=== PATIENT | male | born 1940 | race Caucasian/White ===

== ENCOUNTER 2023-09-09 13:37 | Inpatient (IN) | payer MEDICARE, BC, SELFPAY ==
[2023-09-09] VITALS (9 sets, daily range): BP systolic 120–161; BP diastolic 65–89; BMI 20.9; BMI 21.1
[2023-09-09 09:01] LABS: % Basophils 0.4 % (0-2); % Eosinophils 1.2 % (0-6); % Immature Granulocytes 0.2 % (0-0.5); % Lymphocytes 27.8 % (20.5-51.1); % Monocytes 9.1 % (1.7-9.3); % Neutrophils 61.3 % (42.2-75.2); Absolute Eosinophils 0.1 10^3/uL (0-0.7); Absolute Lymphocytes 1.6 10^3/uL (1.2-3.4); Absolute Monocytes 0.5 10^3/uL (0.1-0.6); Absolute Neutrophils 3.4 10^3/uL (1.4-6.5); Hematocrit 40.6 % (39.0-52.0); Hemoglobin 13.7 g/dL (13.0-18.0); Mean Corp Hgb Conc. 33.7 g/dL (33.0-37.0); Mean Corpuscular Hgb 29.3 pg (27.0-31.0); Mean Corpuscular Volume 86.9 fL (80.0-94.0); Mean Platelet Volume 9.2 fL (7.4-10.4); Nucleated Red Blood Cells % 0 % (-); Platelet Count 174 10^3/uL (130-400); Red Blood Cell Count 4.67 10^6/uL (4.70-6.10); Red Cell Dist. Width 12.7 % (11.5-14.5); White Blood Cell Count 5.6 10^3/uL (4.8-10.8)
[2023-09-09 09:13] LABS: ALT (SGPT) 23 U/L (0-50); AST (SGOT) 31 U/L (17-59); Albumin 4.2 g/dl (3.5-5.0); Alkaline Phosphatase 107 U/L (38-126); Blood Urea Nitrogen 22 mg/dl (9-20); Calcium 9.2 mg/dl (8.4-10.2); Carbon Dioxide 27 mmol/L (22-30); Chloride 105 mmol/L (98-107); Estimated Creatinine Clearance 89 ml/min; Glucose 101 mg/dl (70-99); Potassium 4.3 mmol/L (3.5-5.1); Sodium 138 mmol/L (135-145); Total Protein 7.1 g/dl (6.3-8.2); eGFR > 60.00
--- NOTE | 2023-09-09 09:37 | ED.GENMED ---
History of Present Illness
<BERNICE Kurtz - Last Filed: 09/09/23 11:28>
General
Chief Complaint: Fall
Exam Limitations: dementia
Time Seen by Provider: 09/09/23 09:15
Nursing documentation reviewed up to this point in time: agreed with
Travel History
Have you had any contact with someone who has COVID-19?: No
Do you have any symptoms of coronavirus? Fever > 100 degrees, chills, cough, shortness of breath, sore throat, loss of taste or smell, muscle aches, or headache?: No
History of Present Illness
History of Present Illness:
Patient is an 83-year-old male from the [facility] at [place] sent for evaluation. Patient currently had a trip and fall and has hip pain as per EMS and penitentiary. Patient has a history of dementia with Lewy body dementia high cholesterol,
hypertension high cholesterol. Patient arrives awake alert not able to give history. He does wince with movement of left hip.
Past History
<BERNICE Kurtz - Last Filed: 09/09/23 11:28>
Past History
ED Past Medical History: Hypercholesterolemia and Other (parkinsons, Lewy Body dementia)
ED Past Surgical History: None and Orthopedic
Social History
Tobacco: Former smoker
Alcohol: None
Personal: Single
Living: with family
Review of Systems
<BERNICE Kurtz - Last Filed: 09/09/23 11:28>
Review of Systems
Allergies reviewed?: Yes
Unable to obtain full review of systems at this time due to: dementia
Other source history: penitentiary
All Other Systems: ROS reviewed and negative except as documented in HPI and ROS
Musculoskeletal: Reports other (left hip pain )
Skin: Reports no symptoms
Neurological: Reports other (no mental status change )
Psychiatric: Reports no symptoms
Phy Exam
<BERNICE Kurtz - Last Filed: 09/09/23 11:28>
General Physical Exam
General Presentation: no apparent distress
General age: appears stated age
General Skin: warm and dry
General Habitus: elderly
General Mental: alert
General Hydration: appears well hydrated
Cardiovascular Exam
Cardiovascular Exam: regular rate/rhythm and no murmur
Pulmonary Exam
Pulmonary Exam: lungs clear and no respiratory distress
Neurological Exam
Neurological Exam: alert and oriented x3
[place] Coma Scale
Eye Opening: Spontaneous
Verbal Response: Oriented
Musculoskeletal Exam
Musculoskeletal Exam: other (Strong distal pulses to bilateral lower extremity patient winces with range of motion to left hip)
Skin Exam
Skin Exam: normal color and warm/dry
Psychiatric Exam
Psychiatric Exam: normal mood/affect
Course
<BERNICE Kurtz - Last Filed: 09/09/23 11:28>
Orders/Labs/Results
Orders:
Orders
09/09/23 08:43
Electrocardiogram (*1) Urgent
Reason for Study: Vertigo / Dizzy
EKG- Treatment ONCE
09/09/23 08:48
CMP [Comprehensive Metabolic Panel] Urgent
Complete Blood Count/With Diff Urgent
09/09/23 08:56
CR Hip - LT w/wo Pel 2-3 Vw* Urgent
Comment:
Reason For Exam: pain post fall
Include a pelvis x-ray?: Yes
09/09/23 09:38
CT Cervical Spine W/o Iv Contr Urgent
Comment:
Reason For Exam: trauma
CT Head W/o Iv Contrast Urgent
Comment:
Reason For Exam: trauma
Abnormal Lab Results
09/09/23
08:48
RBC 4.67 L 10^6/uL
(4.70-6.10)
BUN 22 H mg/dl
(9-20)
Creatinine 0.6 L mg/dL
(0.7-1.3)
Glucose 101 H mg/dl
(70-99)
09/09/23 08:48
09/09/23 08:48
Vital Signs
Initial and Last Documented VS:
Initial Vital Signs
Temp Pulse Resp BP Pulse Ox
98.1 F 61 16 157/89 96
09/09/23 08:44 09/09/23 08:44 09/09/23 08:44 09/09/23 08:44 09/09/23 08:44
Last Documented Vital Signs
Temp Pulse Resp BP Pulse Ox
98.1 F 56 16 136/66 99
09/09/23 08:44 09/09/23 10:00 09/09/23 08:52 09/09/23 10:00 09/09/23 10:00
Project Coordinator consulted with Physician
Project Coordinator consulted with physician?: Yes
Name of Physician Consulted: valeriy
<Chuckie Cruz, DO - Last Filed: 09/09/23 12:01>
Orders/Labs/Results
Orders:
Orders
09/09/23 08:43
Electrocardiogram (*1) Urgent
Reason for Study: Vertigo / Dizzy
EKG- Treatment ONCE
09/09/23 08:48
CMP [Comprehensive Metabolic Panel] Urgent
Complete Blood Count/With Diff Urgent
09/09/23 08:56
CR Hip - LT w/wo Pel 2-3 Vw* Urgent
Comment:
Reason For Exam: pain post fall
Include a pelvis x-ray?: Yes
09/09/23 09:38
CT Cervical Spine W/o Iv Contr Urgent
Comment:
Reason For Exam: trauma
CT Head W/o Iv Contrast Urgent
Comment:
Reason For Exam: trauma
Abnormal Lab Results
09/09/23
08:48
RBC 4.67 L 10^6/uL
(4.70-6.10)
BUN 22 H mg/dl
(9-20)
Creatinine 0.6 L mg/dL
(0.7-1.3)
Glucose 101 H mg/dl
(70-99)
09/09/23 08:48
09/09/23 08:48
Vital Signs
Initial and Last Documented VS:
Initial Vital Signs
Temp Pulse Resp BP Pulse Ox
98.1 F 61 16 157/89 96
09/09/23 08:44 09/09/23 08:44 09/09/23 08:44 09/09/23 08:44 09/09/23 08:44
Last Documented Vital Signs
Temp Pulse Resp BP Pulse Ox
98.1 F 56 16 136/66 99
09/09/23 08:44 09/09/23 10:00 09/09/23 08:52 09/09/23 10:00 09/09/23 10:00
<BERNICE Kurtz - Last Filed: 09/09/23 11:28>
MDM/Problems Addressed
Differential Diagnosis Includes:
Not limited to hip contusion versus fracture or dislocation
MDM/Problems Addressed:
I spoke with NOREEN daughter, Coco Arrington [phone]. I did make her aware that patient has a left hip fracture what appears to be a femoral neck fracture. It was unclear if patient hit his head. CT head negative ct cervical spine neg .
Patient has an obvious left femoral neck fracture on x-ray as documented. Case reviewed with orthopedics as well as hospitalist patient is not on blood thinners patient stable.
Chronic conditions affecting care:
Lewy body dementia from penitentiary
<BERNICE Kurtz - Last Filed: 09/09/23 11:28>
*Radiology
Radiology exam reviewed: preliminary read by ED provider (left femoral neck fx)
*Pulse Oximetry
Patient hypoxic: no
*EKG
Interpreted by ED Provider?: Yes
Heart Rate: 59
Rate: bradycardiac
Rhythm: sinus
Ischemia: non-specific ST changes
*Critical Care Note
Total Time (30-74mins, 75-104mins- exclusive of procedures): Not Applicable
Data Reviewed
Review of Other/Old Records Reveals: Discharge Summary
Source: family and penitentiary
<BERNICE Kurtz - Last Filed: 09/09/23 11:28>
Patient Management
Discussion with other providers: Talent Development Consultant (ortho DR Parra )
ED Attending Note
<BERNICE Kurtz - Last Filed: 09/09/23 11:28>
-
Portions of this chart may have been created with voice recognition software.� Occasional wrong word or��sound alike� substitutions may have occurred due to the inherent limitations of voice recognition software.
<Chuckie Cruz DO - Last Filed: 09/09/23 12:01>
ED Attending Note
Patient seen and examined by attending physician: Yes
I performed the substantive portion of visit, reviewed & personally made and approve the management plan that is documented in note by myself or YOLADNA.: Yes
ED Attending Note:
Seen with ARCH SUPPORT MAKER examined independently slip and fall with hip fracture previous hip replacement on the contralateral side
Discharge Plan
Departure
Patient Disposition: Admit
Date of Disposition: 09/09/23
Time of Disposition: 11:28
Admit to: Med/Surg
Presentation/result/management discussed w/ accepting MD/DO: Hospitalist
Patient with high blood pressure during this ER visit?: Yes
Condition: Fair
Covid-19: Not Applicable
Discharge Problem:
Closed fracture of left hip
Prescriptions:
No Action
oxybutynin chloride 5 mg Tablet Extended Release 24hr
5 mg PO DAILY
atorvastatin 10 mg tablet
10 mg PO DAILY@1999
aspirin 81 mg tablet,delayed release (DR/EC)
81 mg PO DAILY
acetaminophen 500 mg Tablet
1,000 mg PO Q6HPRN PRN (Reason: pain, headache, fever)
finasteride 5 mg tablet
5 mg PO BID
midodrine 10 mg tablet
10 mg PO TID@0800,1300,1800
Patient Comments:
09/09/23: hold for SBP>130
lorazepam 0.5 mg Tablet
0.25 mg PO HS
Blink Tears 0.25 % Drops
1 drp OPHTHALMIC (EYE) TID
loperamide 2 mg Capsule
2 mg PO Q6H PRN (Reason: loose stools)
famotidine 20 MG tablet
20 mg PO DAILY@1999
memantine 10 MG tablet
10 mg PO BID
Referrals:
UNKNOWN - PT DOES,NOT KNOW [Family Provider] -
Interventions
Interventions:
*Risk Screen - Suicide Last Done: 09/09/23 08:44
*General Assessment Last Done: 09/09/23 08:44
*Neglect/Abuse Screening Last Done: 09/09/23 08:44
ED- Fall Risk Assessment Last Done: 09/09/23 08:44
*ED COVID-19 Vaccine History Last Done: 09/09/23 08:44
ED-Musculoskeletal Assessment Last Done: 09/09/23 08:44
ED- Neurological Assessment Last Done: 09/09/23 08:44
ED-Skin Assessment Last Done: 09/09/23 08:44
--- NOTE | 2023-09-09 13:33 | HPS.HSE ---
Family Physician
-
Family Physician: NOT KNOW UNKNOWN - PT DOES
Chief Complaint
-
Mechanical fall
History of Present Illness
Patient is 83 years old male with Lewy body dementia who presents from local facility after mechanical fall when patient tripped. Due to dementia patient is limited historian. He was brought by EMS to ED given hip pain and was found to have acute
angulated nondisplaced intertrochanteric fracture of the left femur. Additional radiologic surveys was negative for head or cervical spine trauma
Patient is afebrile hemodynamically stable.
Further laboratory workup with unremarkable CBC and mildly elevated BUN, otherwise normal electrolytes.
Medical History
Past Medical History
Past Medical History: Reports Dementia (Lewy body type), Hypercholesterolemia and Other (Chronic orthostatic hypotension, BPH)
Past Surgical History: Reports Orthopedic
Social History
Unable to obtain full social history at this time due to: Dementia
Tobacco: Non-smoker
Alcohol: None
Drug: None
Family History
Family History: Not pertinent
Allergies / Home Medications
Allergies reflects when Allergies were last updated in [employer].
Home Medications with original date entered in [employer]
Allergy/Medication List:
Allergies
Allergy/AdvReac Type Severity Reaction Status Date / Time
No Known Allergies Allergy Verified 05/04/22 10:37
Home Medications
acetaminophen 500 mg tablet 1,000 mg PO Q6HPRN PRN pain, headache, fever 05/05/22
aspirin 81 mg tablet,delayed release 81 mg PO DAILY Blood clot prevention/tx 05/05/22
atorvastatin 10 mg tablet 10 mg PO DAILY@2000 High cholesterol 05/05/22
finasteride 5 mg tablet 5 mg PO BID prostate 05/05/22
midodrine 10 mg tablet 10 mg PO TID@0800,1300,1800 low blood presssure 05/05/22
oxybutynin chloride 5 mg tablet,extended release 24 hr 5 mg PO DAILY urinary incontinence 05/05/22
famotidine 20 mg tablet 20 mg PO DAILY@1999 Gastrointestinal Issue 09/09/23
loperamide 2 mg capsule 2 mg PO Q6H PRN loose stools 09/09/23
lorazepam 0.5 mg tablet 0.25 mg PO HS anxiety 09/09/23
memantine 10 mg tablet 10 mg PO BID Neurological Condition 09/09/23
polyethylene glycol 400 0.25 % eye drops (Blink Tears) 1 drp ophthalmic (eye) TID Eye Condition 09/09/23
Review of Systems
-
Unable to obtain full review of systems at this time due to: Dementia
Physical Exam
Vital Signs
Vital Signs
Temp Pulse Resp BP Pulse Ox
98.1 F 56 16 136/66 99
09/09/23 08:44 09/09/23 10:00 09/09/23 08:52 09/09/23 10:00 09/09/23 10:00
Physical Exam
General: Well Developed, Well Nourished and No Apparent Distress
HEENT: NormoCephalic, Moist mucous membranes and Atraumatic
Respiratory: Clear
Cardiac: S1/S2 and Regular Rhythm; No Murmur or Rub
GI: Soft, Non Tender, Non Distended and Normal Bowel Sounds; No Organomegaly
Rectal: Deferred by Provider
Musculoskeletal: No Clubbing, No Cyanosis, No Edema and Other (Left lower extremity externally rotated and shortened)
Skin: No Rash
Neuro: Nonfocal/grossly intact
Laboratory Results
-
09/09/23 08:48
09/09/23 08:48
Laboratory Results
Total Bilirubin 1.0 mg/dl (0.2-1.3) 09/09/23 08:48
AST 31 U/L (17-59) 09/09/23 08:48
ALT 23 U/L (0-50) 09/09/23 08:48
Alkaline Phosphatase 107 U/L (38-126) 09/09/23 08:48
Data Reviewed
-
Diagnostic Radiology: Report Reviewed by me
CT Scan: Report Reviewed by me
Lab Data: Labs Reviewed by me
Impression/Plan
-
IMPRESSION:
Left angulated intertrochanteric femoral fracture secondary to mechanical trauma and osteoporosis
Conditions prior to admission:
Ambulatory dysfunction multifactorial.
Dementia Lewy body type
Chronic orthostatic hypotension.
Dyslipidemia
BPH
PLAN:
Status post fall
Intratrochanteric femoral fracture on the left.
No head trauma.
Orthopedic consultation pending.
Surgical intervention planned for 16 a.m.
N.p.o. postmidnight
Preoperative clearance:
RCRI
83 years old with advanced dementia and orthostatic hypotension, although with no major independent predictors of cardiac complications, medical history negative for CAD/CHF/CVA/DM/renal insufficiency.
Overall no prohibitive risk to proceed
No additional workup required.
Lewy body dementia.
Patient with prior history of metabolic encephalopathy while hospitalized
Monitor him mental status closely
Follow electrolytes renal function
Chronic orthostatic hypotension
Currently IV fluids for maintenance while NPO.
Continue midodrine
BPH
Continue finasteride
Bladder scan postoperatively monitoring for retention.
Full code
DVT prophylaxis postoperatively
Discussed with orthopedics.
[2023-09-09] MEDS: REFRESH EYE DROPS (PF) 1 DROPS OPHTH ×2 (15:40→23:12)
[2023-09-09] MEDS: NSS 1000 IV (15:40)
[2023-09-09] MEDS: MORPHINE SULFATE 2 MG IV ×2 (15:44→19:43)
--- NOTE | 2023-09-09 17:35 | PTCARENOTE ---
Pt received from ED with L hip fracture s/p fall at alf. AAOx2. Disoriented to time. Pt with hx Lewy Body dementia. VSS. Pt complains of L hip pain 01/03. IV morphine given with some relief. Pt sent for CT scan of L hip. Plan for OR tmrw.
NPO order placed for midnight. IVF infusing per order. Daughter at bedside. Assessment documented.
[2023-09-09] MEDS: ProAmatine PO (18:41)
[2023-09-09] MEDS: DITROPAN 2.5 MG PO (19:06)
[2023-09-09] MEDS: NAMENDA 10 MG PO (19:07)
[2023-09-09] MEDS: PEPCID 20 MG PO (19:07)
[2023-09-09] MEDS: LIPITOR 10 MG PO (19:07)
[2023-09-09] MEDS: PROSCAR 5 MG PO (19:07)
[2023-09-09] MEDS: TYLENOL 1000 MG PO (19:10)
[2023-09-09] MEDS: ATIVAN 0.25 MG PO (23:13)
[2023-09-10] VITALS (13 sets, daily range): BP systolic 81–157; BP diastolic 39–80
[2023-09-10] MEDS: MORPHINE SULFATE 2 MG IV ×3 (00:31→23:11)
[2023-09-10] MEDS: NSS 1000 IV ×2 (04:17→15:52)
[2023-09-10 06:53] LABS: % Basophils 0.1 % (0-2); % Eosinophils 0.4 % (0-6); % Immature Granulocytes 0.4 % (0-0.5); % Lymphocytes 12.7 % (20.5-51.1); % Monocytes 9.5 % (1.7-9.3); % Neutrophils 76.9 % (42.2-75.2); Absolute Lymphocytes 1.1 10^3/uL (1.2-3.4); Absolute Monocytes 0.8 10^3/uL (0.1-0.6); Absolute Neutrophils 6.5 10^3/uL (1.4-6.5); Hematocrit 33.8 % (39.0-52.0); Hemoglobin 11.3 g/dL (13.0-18.0); Mean Corp Hgb Conc. 33.4 g/dL (33.0-37.0); Mean Corpuscular Hgb 29.4 pg (27.0-31.0); Mean Platelet Volume 9.9 fL (7.4-10.4); Nucleated Red Blood Cells % 0 % (-); Platelet Count 178 10^3/uL (130-400); Red Blood Cell Count 3.84 10^6/uL (4.70-6.10); Red Cell Dist. Width 12.6 % (11.5-14.5); White Blood Cell Count 8.4 10^3/uL (4.8-10.8)
[2023-09-10 07:32] LABS: Blood Urea Nitrogen 23 mg/dl (9-20); Calcium 8.7 mg/dl (8.4-10.2); Carbon Dioxide 27 mmol/L (22-30); Chloride 105 mmol/L (98-107); Estimated Creatinine Clearance 90 ml/min; Glucose 109 mg/dl (70-99); Sodium 135 mmol/L (135-145); eGFR > 60.00
--- NOTE | 2023-09-10 08:07 | PTCARENOTE ---
left to sx 805, with a consent form, no ABT. 2 sets of wipes. foot pumps
--- NOTE | 2023-09-10 08:31 | W.PN.UPDATE ---
Update Note
Progress Note Update
Full ortho consult to be dictated.
Patient with left hip intertroch fracture. Has a h/o lewy body dementia, so history obtained through chart review and speaking with daughter, Adelina, who is medical POA.
Patient will require surgical fixation. Surgical and blood consents received verbally over the phone from Adelina.
Plan is for left hip ORIF with gamma nail under direction of Dr. Parra this morning.
IV ancef distribution supervisor to OR.
--- NOTE | 2023-09-10 09:43 | CON.ORTHO ---
Consultation
-
Date/Time Consultation Requested: 09/09/2023
Date/Time Consultation Performed: 09/10/2023
Requesting Provider: Dr. Delatorre
Performing Provider: Leonie Rodriguez PA-C, for Dr. Endy Parra
Reason for Consultation: Left hip fracture
Consultation - Orthopedics
History
History of present illness: This is an 83-year-old male who presented to [facility] emergency department from the [facility] [place] following a trip and fall. He has a history of Lewy body dementia, so his history was obtained through
chart review and from his daughter, Adeilna, who is his medical power of compressor station engineer. During the fall, he landed on his left hip. He experienced immediate pain and inability to ambulate, prompting them to bring him to the emergency department. On
exam, he is pleasantly demented, and unable to provide any independent history. When asked, he does admit to left hip pain. He does have a prior history of a right hip femoral neck fracture that was fixed with a right hip hemiarthroplasty in November
[address] Muse.
Past medical history: Significant for hypercholesterolemia, Parkinson's, Lewy body dementia.
Past surgical history: Right hip hemiarthroplasty.
Social history: Former tobacco smoker, no alcohol use, lives at [facility] [place].
Family history: Noncontributory.
Review of systems: Unable to be obtained secondary to dementia.
Allergies / Home Medications
Allergy/AdvReac Type Severity Reaction Status Date / Time
No Known Allergies Allergy Verified 05/04/22 10:37
Medication Instructions Recorded
acetaminophen 500 mg tablet 1,000 mg PO Q6HPRN PRN pain, 05/05/22
headache, fever
aspirin 81 mg tablet,delayed 81 mg PO DAILY Blood clot 05/05/22
release prevention/tx
atorvastatin 10 mg tablet 10 mg PO DAILY@2000 High 05/05/22
cholesterol
finasteride 5 mg tablet 5 mg PO BID prostate 05/05/22
midodrine 10 mg tablet 10 mg PO TID@0800,1300,1800 low 05/05/22
blood presssure
oxybutynin chloride 5 mg 5 mg PO DAILY urinary incontinence 05/05/22
tablet,extended release 24 hr
famotidine 20 mg tablet 20 mg PO DAILY@199909/09/23
Gastrointestinal Issue
loperamide 2 mg capsule 2 mg PO Q6H PRN loose stools 09/09/23
lorazepam 0.5 mg tablet 0.25 mg PO HS anxiety 09/09/23
memantine 10 mg tablet 10 mg PO BID Neurological Condition 09/09/23
polyethylene glycol 400 0.25 % eye 1 drp ophthalmic (eye) TID Eye 09/09/23
drops (Blink Tears) Condition
Vital Signs / Lab Results
Temp Pulse Resp BP Pulse Ox
98 F 52 15 92/50 99
09/10/23 09:20 09/10/23 09:31 09/10/23 09:31 09/10/23 09:31 09/10/23 09:31
09/10/23 06:19
09/10/23 06:19
Physical examination:
General: Well-developed, well-nourished male in no acute distress at rest. Sleeping peacefully on my arrival. Oriented only to self.
HEENT: Atraumatic, normocephalic, neck supple.
Lungs: Nonlabored breathing on room air, no audible wheezing.
Heart: Regular rate and rhythm.
Left hip: Mild tenderness to palpation about the lateral hip. No significant swelling or ecchymoses. Superficial abrasion noted on anterior left knee. Range of motion of hip not tested. Able to dorsi/plantarflex the ankle without difficulty.
Calf is soft and nontender palpation.
Radiographic studies:
X-ray of the pelvis and left hip shows evidence of an angulated acute nondisplaced intertrochanteric fracture.
CT scan of the left hip shows evidence of a comminuted intertrochanteric proximal femur fracture with varus angulation and medial displaced lesser trochanteric fracture. There is no intra-articular extension.
Assessment / Plan
Assessment: Left hip intertrochanteric fracture.
Plan: Unfortunately, Mr. Fitzgerald sustained a mildly displaced intertrochanteric hip fracture during his fall yesterday. I reached out to his daughter, Adelina, who is his medical power of compressor station engineer. Discussed treatment recommendations going forward
including both surgical and nonsurgical interventions. At this time, we recommend proceeding with a left hip open reduction internal fixation with gamma nail. The procedure was explained in detail along with the associated risk, benefits, and
recovery process. Surgical and blood transfusion consent were obtained over the telephone by Adelina on 09/09/2023 and placed in patient's chart. The plan will be to proceed with the surgery under the direction of Dr. Parra on 09/10/2023. IV
antibiotics on-call to the OR. All questions were answered and patient's daughter Adelina was in agreement with treatment recommendations and plan going forward.
--- NOTE | 2023-09-10 10:59 | PTCARENOTE ---
1020 return to floor, asleep, not awake enough, unable to give AM meds at this time. 75 NSS via 22 RFA. . 3 Aquacels top one has slight drainage. bed low call morley in reach.
[2023-09-10] MEDS: ProAmatine 10 MG PO ×3 (12:31→17:00)
[2023-09-10] MEDS: DITROPAN 2.5 MG PO ×2 (12:33→19:46)
[2023-09-10] MEDS: PROSCAR 5 MG PO ×2 (12:33→19:46)
[2023-09-10] MEDS: NAMENDA 10 MG PO ×2 (12:33→19:46)
[2023-09-10] MEDS: REFRESH EYE DROPS (PF) 1 DROPS OPHTH ×3 (12:34→20:39)
--- NOTE | 2023-09-10 14:30 | W.PN.HOSP.TC ---
Today's Communication/Plan
-
IVF
Post op care
Assessment / Plan
Assessment / Plan
82-year-old male with Lewy body dementia presented with a fall
S/P ORIF
Drowsy arousable
Able to move all extremities
Cardiovascular system S1-S2 appreciated
Chest clear to auscultation
Abdomen soft nontender
Left hip site looks stable mild shadowing in the Aquacel
# Angulated left intertrochanteric femoral fracture secondary to trauma and osteoporosis
Left hip intramedullary nail placement by Dr. Parra on 09/10/23
IVF post op because of postop hypotension
# Lewy body dementia-on memantine
# Chronic orthostatic hypotension-midodrine
# Dyslipidemia-statin
# Prostatic atrophy-finasteride
Oxybutynin for urinary incontinence
# Anxiety-lorazepam at nighttime
# Ambulatory dysfunction
# DVT prophylaxis-aspirin
# Full code
Discussed with nursing
Anticipated Discharge: 24 - 48 hours
Subjective/Interval History
-
Date of Service: September 10, 2023
Objective Data
-
Labs:
Laboratory Results
09/10/23
06:19
WBC 8.4
Hgb 11.3 L
Hct 33.8 L
Plt Count 178
Sodium 135
Potassium 4.0
Chloride 105
Carbon Dioxide 27
BUN 23 H
Creatinine 0.5 L
Glucose 109 H
Calcium 8.7
Vital Signs:
Vital Signs
Temp Pulse Resp BP Pulse Ox
98.1 F 67 16 81/63 98
09/10/23 10:20 09/10/23 14:12 09/10/23 10:20 09/10/23 14:12 09/10/23 14:10
I&O
03/09/10/23 09/11/23
06:59 06:59 06:59
Intake Total 440 / 440 100 / 100
Output Total 200 / 200
Balance 240 / 240 100 / 100
[2023-09-10] MEDS: NSS 500 IV (15:49)
[2023-09-10] MEDS: ANCEF 5 IV ×2 (15:54→23:10)
--- NOTE | 2023-09-10 15:57 | PTCARENOTE ---
1430: notified Dr. Gupta BP 81/63 (67), gave his Midodrine, bolus 500mls NSS at 250mls/hr. pts bed is soaked changed, placed brief is pulling at dressings, reaching for things in the air. does not c/o pain. not given d/t BP.
--- NOTE | 2023-09-10 16:23 | CM ---
Patient seen at bedside. Patient from [facility], a [facility] care center, not SNF. Phone number is [phone] and CM left VM with VM. Patient family not at bedside. CM called to patient daughter and VM left. PT/OT recommending SNF. CM
will continue to follow for discharge planning needs.
Plan; SNF; pending family input
[2023-09-10] MEDS: ASPIRIN 325 MG PO (16:59)
--- NOTE | 2023-09-10 19:04 | PTCARENOTE ---
CM please call family Laura to discuss Rehab Centers. They do not think [facility] has a rehab, they wanted [facility] b/c he was there previous, let them know he probably will not meet their requirements for admission.
[2023-09-10] MEDS: PEPCID 20 MG PO (19:45)
[2023-09-10] MEDS: COLACE 100 MG PO (19:45)
[2023-09-10] MEDS: LIPITOR 10 MG PO (19:45)
[2023-09-10] MEDS: SENOKOT 17.1999999999999993 MG PO (19:46)
[2023-09-10] MEDS: TYLENOL 1000 MG PO (20:38)
[2023-09-10] MEDS: ATIVAN 0.25 MG PO (20:38)
--- NOTE | 2023-09-10 21:59 | PTCARENOTE ---
Pt cont to be restless in bed removing surgical adhesives and clothing, HS scheduled Ativan was given 30min early.
[2023-09-11] VITALS (10 sets, daily range): BP systolic 101–136; BP diastolic 43–57
[2023-09-11] MEDS: MORPHINE SULFATE 2 MG IV (03:26)
[2023-09-11 06:47] LABS: Blood Urea Nitrogen 26 mg/dl (9-20); Carbon Dioxide 24 mmol/L (22-30); Chloride 108 mmol/L (98-107); Estimated Creatinine Clearance 77 ml/min; Glucose 108 mg/dl (70-99); Sodium 135 mmol/L (135-145); eGFR > 60.00
[2023-09-11] MEDS: REFRESH EYE DROPS (PF) 1 DROPS OPHTH ×3 (07:48→22:14)
[2023-09-11] MEDS: MIRALAX 17 GRAMS PO (07:48)
[2023-09-11] MEDS: SENOKOT 17.1999999999999993 MG PO ×2 (07:49→20:09)
[2023-09-11] MEDS: NAMENDA 10 MG PO ×2 (07:49→20:09)
[2023-09-11] MEDS: ProAmatine 10 MG PO ×3 (07:50→17:02)
[2023-09-11] MEDS: PROSCAR 5 MG PO ×2 (07:50→20:10)
[2023-09-11] MEDS: DITROPAN 2.5 MG PO ×2 (07:51→20:10)
[2023-09-11] MEDS: TYLENOL 1000 MG PO ×2 (07:51→17:02)
[2023-09-11 08:13] LABS: Mean Corp Hgb Conc. 33.5 g/dL (33.0-37.0); Mean Corpuscular Hgb 29.4 pg (27.0-31.0); Mean Corpuscular Volume 87.7 fL (80.0-94.0); Mean Platelet Volume 9.7 fL (7.4-10.4); Platelet Count 137 10^3/uL (130-400); Red Blood Cell Count 2.35 10^6/uL (4.70-6.10); Red Cell Dist. Width 13.1 % (11.5-14.5); White Blood Cell Count 8.5 10^3/uL (4.8-10.8)
[2023-09-11 08:20] LABS: Hemoglobin 6.9 g/dL (13.0-18.0)
[2023-09-11 08:21] LABS: Hematocrit 20.6 % (39.0-52.0)
[2023-09-11] MEDS: ASPIRIN PO (08:41)
[2023-09-11] MEDS: COLACE 100 MG PO ×2 (08:43→20:10)
[2023-09-11 08:48] LABS: Mean Corpuscular Hgb 29.7 pg (27.0-31.0); Mean Corpuscular Volume 87.3 fL (80.0-94.0); Mean Platelet Volume 9.9 fL (7.4-10.4); Platelet Count 143 10^3/uL (130-400); Red Blood Cell Count 2.29 10^6/uL (4.70-6.10); Red Cell Dist. Width 12.9 % (11.5-14.5); White Blood Cell Count 8.5 10^3/uL (4.8-10.8)
[2023-09-11 08:51] LABS: Hemoglobin 6.8 g/dL (13.0-18.0)
[2023-09-11 09:29] LABS: Iron 43 ug/dl (49-181)
--- NOTE | 2023-09-11 09:31 | W.PN.HOSP.TC ---
Today's Communication/Plan
-
Blood transfusion
Stop Narcs
Assessment / Plan
Assessment / Plan
82-year-old male with Lewy body dementia presented with a fall
S/P ORIF
Hemoglobin dropped this morning
Drowsy arousable
Prefers to keep eyes closed
Able to move all extremities
Cardiovascular system S1-S2 appreciated
Chest clear to auscultation
Abdomen slightly distended
Left thigh significantly swollen
# Acute blood loss anemia-postop
Left thigh significantly swollen compared to right
Hold aspirin this morning
Also get CAT scan of the abdomen and pelvis given fall
Blood consent obtained from patient's daughter
Give 2 units of blood
# Angulated left intertrochanteric femoral fracture secondary to trauma and osteoporosis
Left hip intramedullary nail placement by Dr. Parra on 09/10/23
Pain control Celebrex and also Tylenol.
# TME likely secondary to postoperative reasons and also narcotics. Stop narcotics
# Lewy body dementia-on memantine
# Chronic orthostatic hypotension-midodrine
# Dyslipidemia-statin
# Prostatic atrophy-finasteride
Oxybutynin for urinary incontinence
# Anxiety-Lorazepam at nighttime
Continue since that is an OP med.
# Ambulatory dysfunction
# DVT prophylaxis-foot pumps today. Hold aspirin
# Full code
Discussed with nursing
Daughter updated regarding TME, anemia. Blood consent obtained
D/W Lab
Anticipated Discharge: > 48 hours
Subjective/Interval History
-
Date of Service: September 11, 2023
Objective Data
-
Labs:
Laboratory Results
09/11/23 09/11/23 09/11/23
06:08 07:54 08:30
WBC 8.5 8.5
Hgb 6.8 L* D 6.9 L* Cancelled
Hct 20.0 L* 20.6 L* Cancelled
Plt Count 143 137
Sodium 135
Potassium 4.0
Chloride 108 H
Carbon Dioxide 24
BUN 26 H
Creatinine 0.7
Glucose 108 H
Calcium 8.0 L
Vital Signs:
Vital Signs
Temp Pulse Resp BP Pulse Ox
98.4 F 66 18 114/43 94
09/11/23 07:45 09/11/23 07:50 09/11/23 07:45 09/11/23 07:50 09/11/23 07:45
I&O
09/10/23 09/11/23 09/12/23
06:59 06:59 06:59
Intake Total 440 / 440 955 / 955
Output Total 200 / 200
Balance 240 / 240 955 / 955
[2023-09-11 09:38] LABS: Percent Saturation 20 % (20-50); Total Iron Binding Capacity 214 ug/dl (261-462)
[2023-09-11 10:20] LABS: Vitamin B12 247 pg/ml (239-931)
--- NOTE | 2023-09-11 10:25 | W.PN.ORTHO ---
Today's Communication / Plan
-
POD #1 s/p left hip gamma nail.
WBAT LLE with walker.
PT/OT as medically able.
Hgb of 6.9 this morning. Minimal blood loss intraoperatively and expected amount of post op swelling.
Aspirin on hold due to anemia.
Appreciate hospitalist management of patient. Receiving 2 units of blood this am.
Patient will require SNF on discharge. Kyle may be removed at 2 weeks post op with f/u in office at 4 weeks post op with x-rays.
Will continue to follow patient.
Assessment
.
Distal Motor Intact: Yes
Dressing:
Clean, dry and intact.
Assessment:
POD #1 s/p left hip gamma nail.
WBAT LLE with walker.
PT/OT as medically able.
Hgb of 6.9 this morning. Minimal blood loss intraoperatively and expected amount of post op swelling.
Aspirin on hold due to anemia.
Appreciate hospitalists management of patient. Receiving 2 units of blood this am.
Patient will require SNF on discharge. Kyle may be removed at 2 weeks post op with f/u in office at 4 weeks post op with x-rays.
Will continue to follow patient.
Plan
.
Surgery / Date: 09/10/2023
DVT Prophylaxis: Aspirin
Activity:
Out of bed.
PT/OT
Discharge Plan: SNF
Subjective
.
.:
Patient resting comfortably in bed. Difficult to arouse. Unable to answer questions.
Vital Signs and Labs
.
Vital Signs and Labs:
Lab Results
09/11/23 08:30
09/11/23 06:08
Temp Pulse Resp BP Pulse Ox
98.4 F 66 18 114/43 94
09/11/23 07:45 09/11/23 07:50 09/11/23 07:45 09/11/23 07:50 09/11/23 07:45
Physical Exam
-
Left hip: Moderate diffuse swelling of left thigh, within post operative expectations. Compartment is soft and palpation elicits no response from patient. No ecchymosis. Mild drainage noted on most proximal aquacel dressing. Distal incision
open to air with mild serosanguinous drainage - dry dressing placed over the kyle. Logroll does not elicit pain response from patient. Calf soft.
--- NOTE | 2023-09-11 11:14 | CM ---
CM met with patient daughter Laura at bedside. Correct numbers for her and sister both POA are; [phone]/ sister Coco [phone]. CM reviewed list of SNF options and reviewed Medicare.gov listing. Laura to talk to her sister and will update
CM with list of options for referrals to SNF. Daughter agrees that patient will need SNF level prior to possible return to [facility]. Patient daughter interested in [facility] in [place] but wants to talk to her sister before CM sends
referral. CM will continue to follow for discharge planning needs.
Plan; SNF
[2023-09-11] MEDS: CELEBREX 100 MG PO ×2 (11:26→20:09)
[2023-09-11] MEDS: TYLENOL PO (11:26)
[2023-09-11] MEDS: LIPITOR 10 MG PO (20:10)
[2023-09-11] MEDS: PEPCID 20 MG PO (20:10)
[2023-09-11] MEDS: ATIVAN 0.25 MG PO (22:14)
[2023-09-12] MEDS: TYLENOL 1000 MG PO ×2 (01:52→10:14)
[2023-09-12 05:07] LABS: Hematocrit 26.1 % (39.0-52.0)
[2023-09-12 05:21] LABS: Hemoglobin 8.9 g/dL (13.0-18.0)
--- NOTE | 2023-09-12 07:20 | W.PN.ORTHO ---
Today's Communication / Plan
-
POD #2 s/p left hip CMN w/ Dr. Parra.
WBAT LLE with walker.
PT/OT as medically able.
Hgb of 8.9 this morning s/p 2 units
DVT ppx for 30 days postop per primary; ASA 81 BID or as recommended otherwise in setting of postop anemia.
DC planning; Patient will require SNF on discharge.� Kyle may be removed at 2 weeks post op with f/u in office at 4-5 weeks post op with x-rays.
Orthopedic surgery will follow peripherally; please reengage with questions/concerns.
Assessment
.
Distal Motor Intact: Yes
Dressing:
Clean, dry and intact.
Plan
.
Surgery / Date: 09/10/2023 L JOSEPHINE w/ Dr. Parra
Activity:
Out of bed.
PT/OT
Subjective
.
.:
Patient resting comfortably.
Vital Signs and Labs
.
Vital Signs and Labs:
Lab Results
09/12/23 04:40
09/11/23 06:08
Temp Pulse Resp BP Pulse Ox
97.7 F 70 18 112/47 97
09/11/23 22:35 09/11/23 22:35 09/11/23 22:35 09/11/23 22:35 09/11/23 22:35
Physical Exam
-
Left hip:� Moderate diffuse swelling of left thigh, within post operative expectations.� Compartment is soft and palpation elicits no response from patient.� No ecchymosis.� Mild drainage noted on most proximal aquacel dressing. Dry dressing placed
over the kyle distal wound with minimal strikethrough.� Logroll does not elicit pain response from patient. Calf soft.
[2023-09-12 08:50] VITALS: BP 127/58
[2023-09-12] MEDS: MIRALAX 17 GRAMS PO (09:00)
[2023-09-12] MEDS: ProAmatine 10 MG PO ×2 (09:00→13:38)
[2023-09-12] MEDS: DITROPAN 2.5 MG PO ×2 (09:00→19:38)
[2023-09-12] MEDS: NAMENDA 10 MG PO ×2 (09:01→19:38)
[2023-09-12] MEDS: COLACE 100 MG PO ×2 (09:01→19:38)
[2023-09-12] MEDS: SENOKOT 17.1999999999999993 MG PO ×2 (09:01→19:38)
[2023-09-12] MEDS: REFRESH EYE DROPS (PF) 1 DROPS OPHTH ×3 (09:02→21:12)
[2023-09-12] MEDS: PROSCAR 5 MG PO ×2 (09:02→19:39)
[2023-09-12] MEDS: CELEBREX 100 MG PO ×2 (09:02→19:39)
--- NOTE | 2023-09-12 09:14 | W.PN.HOSP.TC ---
Today's Communication/Plan
-
If patient does not have a bowel movement by 2 PM we will order magnesium citrate
Labs at 2 PM
Restart aspirin if hemoglobin is stable.
Assessment / Plan
Assessment / Plan
82-year-old male with Lewy body dementia presented with a fall
S/P ORIF
Awake and alert this am
Able to move all extremities
Cardiovascular system S1-S2 appreciated
Chest clear to auscultation
Abdomen slightly distended
Left thigh significantly swollen
# Acute blood loss anemia-postop
Left thigh significantly swollen compared to right-postoperative bleeding is likely reason for acute blood loss anemia.
Restart ASA if rpt Hb stable at 2 PM[address]
CAT scan of the abdomen and pelvis -small intramuscular hematoma/edema in the left iliopsoas muscle and piriformis muscle. Postsurgical changes. Right hip hardware ordered artifact in the pelvis. Moderate fecal material throughout the colon.
Hepatic cyst and hemangioma. Nonobstructing renal stone
Status post 2 units of packed red blood cells on 09/11/23 with appropriate rise in hemoglobin
Repeat hemoglobin this afternoon if stable will start aspirin.
# Angulated left intertrochanteric femoral fracture secondary to trauma and osteoporosis
Left hip intramedullary nail placement by Dr. Parra on 09/10/23
Pain control Celebrex and also Tylenol.
# TME likely secondary to postoperative reasons and also narcotics. Off narcotics
Mental status stable now
# Lewy body dementia-on memantine
# Chronic orthostatic hypotension-midodrine
# Dyslipidemia-statin
# Prostatic atrophy-finasteride
Oxybutynin for urinary incontinence
# Anxiety-Lorazepam at nighttime
Continue since that is an OP med.
# Nephrolithiasis
# Ambulatory dysfunction
# DVT prophylaxis-foot pumps today. Restart aspirin if hemoglobin is stable at 2 PM
# Full code
Discussed with nursing
Discussed with patient's daughter Laura on the phone. She told me that her sister is power of environmental attorney. But they are both making combined decision. Aware that he may be able to go to rehab tomorrow as long as hemoglobin is stable.
Case management made aware that patient may be able to go to rehab tomorrow.
Anticipated Discharge: Within 24 hours
Subjective/Interval History
-
Date of Service: September 12, 2023
Objective Data
-
Labs:
Laboratory Results
09/12/23 09/12/23
04:40 14:00
WBC Pending
Hgb 8.9 L D Pending
Hct 26.1 L Pending
Plt Count Pending
Sodium Pending
Potassium Pending
Chloride Pending
Carbon Dioxide Pending
BUN Pending
Creatinine Pending
Glucose Pending
Calcium Pending
Vital Signs:
Vital Signs
Temp Pulse Resp BP Pulse Ox
98 F 62 18 127/58 97
09/12/23 08:50 09/12/23 08:50 09/12/23 08:50 09/12/23 08:50 09/12/23 08:50
I&O
09/11/23 09/12/23 09/13/23
06:59 06:59 06:59
Intake Total 955 / 955 120 / 120
Output Total 980 / 980
Balance 955 / 955 -860 / -860
[2023-09-12 09:15] VITALS: BP 127/58; PULSE 62; O2SAT 97
[2023-09-12] MEDS: PROTONIX 40 MG PO (10:14)
--- NOTE | 2023-09-12 11:46 | CM ---
Reviewed the chart notes and spoke with the patient's daughter Laura via telephone regarding SNF placement. Reviewed recommendations for PT/OT is half-way at this time. Daughter Laura in agreement for referral to [facility], [facility], and [facility].
IMM discussed and placed on the chart. CM continues to be available to patient/family and is monitoring medical plan for needs at discharge.
Plan: Discharge to SNF/rehab once bed is found. Medicare is listed as primary in system. No precert required.
[2023-09-12 14:36] LABS: Hematocrit 28.1 % (39.0-52.0); Hemoglobin 9.3 g/dL (13.0-18.0); Mean Corp Hgb Conc. 33.1 g/dL (33.0-37.0); Mean Corpuscular Hgb 29.4 pg (27.0-31.0); Mean Corpuscular Volume 88.9 fL (80.0-94.0); Mean Platelet Volume 10.1 fL (7.4-10.4); Platelet Count 171 10^3/uL (130-400); Red Blood Cell Count 3.16 10^6/uL (4.70-6.10); Red Cell Dist. Width 13.3 % (11.5-14.5); White Blood Cell Count 8.2 10^3/uL (4.8-10.8)
[2023-09-12 14:41] LABS: Blood Urea Nitrogen 22 mg/dl (9-20); Calcium 8.5 mg/dl (8.4-10.2); Carbon Dioxide 28 mmol/L (22-30); Chloride 105 mmol/L (98-107); Estimated Creatinine Clearance 77 ml/min; Glucose 92 mg/dl (70-99); Potassium 3.8 mmol/L (3.5-5.1); Sodium 137 mmol/L (135-145); eGFR > 60.00
[2023-09-12 15:03] VITALS: BP 148/71
[2023-09-12] MEDS: CITROMA 300 ML PO (15:27)
[2023-09-12] MEDS: ASPIRIN ENTERIC COATED PO (15:27)
[2023-09-12] MEDS: DULCOLAX 10 MG RECTAL (15:27)
[2023-09-12] MEDS: HALDOL 0.5 MG IV (16:08)
[2023-09-12] MEDS: ASPIRIN ENTERIC COATED 325 MG PO (16:57)
[2023-09-12] MEDS: TYLENOL PO (18:24)
[2023-09-12] MEDS: ProAmatine PO (18:24)
[2023-09-12] MEDS: LIPITOR 10 MG PO (19:39)
[2023-09-12] MEDS: PEPCID 20 MG PO (19:40)
[2023-09-12 19:52] LABS: Urine Character Clear (Clear); Urine Color Yellow
[2023-09-12 19:53] LABS: Urine Albumin Negative (Neg - Trace); Urine Bilirubin Negative (Negative); Urine Glucose Negative (Negative); Urine Ketone Negative (Negative); Urine Leukocyte Trace (Negative); Urine Nitrite Negative (Negative); Urine Occult Blood Negative (Negative); Urine Urobilinogen Negative (Neg - 1+)
[2023-09-12 19:54] LABS: Urine Red Blood Cell None Seen /HPF (0-2); Urine Squamous Cell 0-2 /LPF (Few); Urine White Cell 0-2 /HPF (0-5)
[2023-09-12] MEDS: ATIVAN 0.25 MG PO (21:12)
--- NOTE | 2023-09-12 22:48 | PTCARENOTE ---
Pt is AAOx3 confused, forgetful and restless at times. Pt too off one of his Aquacel dressing. ABD was replaced instead to prevent from being picked on. Pt had a small soft BM.
[2023-09-13] MEDS: TYLENOL 1000 MG PO ×3 (01:56→17:20)
[2023-09-13 06:54] LABS: Hematocrit 26.9 % (39.0-52.0); Hemoglobin 9.1 g/dL (13.0-18.0)
[2023-09-13 07:42] VITALS: BP 128/57
[2023-09-13] MEDS: MIRALAX 17 GRAMS PO (09:18)
[2023-09-13] MEDS: DITROPAN 2.5 MG PO (09:18)
[2023-09-13] MEDS: PROTONIX 40 MG PO (09:18)
[2023-09-13] MEDS: SENOKOT 17.1999999999999993 MG PO (09:19)
[2023-09-13] MEDS: ProAmatine 10 MG PO ×3 (09:19→17:20)
[2023-09-13] MEDS: ASPIRIN ENTERIC COATED 325 MG PO (09:23)
[2023-09-13] MEDS: NAMENDA 10 MG PO (09:23)
[2023-09-13] MEDS: COLACE 100 MG PO (09:23)
[2023-09-13] MEDS: REFRESH EYE DROPS (PF) 1 DROPS OPHTH ×3 (09:23→21:06)
[2023-09-13] MEDS: PROSCAR 5 MG PO (09:23)
[2023-09-13] MEDS: CELEBREX 100 MG PO (09:24)
--- NOTE | 2023-09-13 10:50 | CM ---
Addendum entered by Daniel Rai 09/13/23 13:12:
Met with patient's daughters, Laura and Coco. Coco is POA. She is not on contact list. She will visit in admissions to correct contacts. Coco's info: Coco Lowe, [address] [place] [address], .
Family is in agreement with patient discharging to [facility]. CM called admissions for bed availability. Awaiting return call. IMM signed.
Original Note:
Therapy recommendation for SNF. Patient has been accepted to [facility] and [facility]. Left message for daughter, Laura, requesting call back.
--- NOTE | 2023-09-13 10:58 | CON.MD ---
Consultation - Medical
-
see dictated note
pt with lewy body dementia
pt with long hx of voiding dysfunction- followed by dr clark
partial retention/noctuira and leak
seen 18 months ago and several phone discussions- on regimen of proscar once a day and flomax increased to bid
earlier this year primary stopped flomax due to hypotension and started low dose ditropan
pt admitted with hip fx- s/p repair
now with urinary retention
[address]- urine clear
pt somnolent and not responsive
was on proscar bid
ct showed distended bladder on admit and fecal impaction
plan
reduce proscar to qday
stop ditropan
start low dose flomax 0.4mg
continue james
maximize bowel regimen
pt should be discharged with james and contact our office to arrange outpt TOV- although given pt's hx and current co-morbidities- suspect he will need james
will follow
--- NOTE | 2023-09-13 11:32 | W.PN.HOSP.TC ---
Addendum entered and electronically signed by Carla Gupta MD 09/13/23 12:23:
met with 2 daughters and son-in-law at bedside
Discussed about Leung catheter, retention, constipation,
Also discussed about rehab and concerns about his dementia being in the way.
Their mother had dementia and the are aware about the barriers
Total discharge coordination time 37 minutes
Original Note:
Today's Communication/Plan
-
Await Urology eval prior to making discharge plans.
Assessment / Plan
Assessment / Plan
82-year-old male with Lewy body dementia presented with a fall
S/P ORIF
Confused
Able to move all extremities
Cardiovascular system S1-S2 appreciated
Chest clear to auscultation
Abdomen slightly distended
Left thigh significantly swollen, echymosis
# Acute blood loss anemia-postop
Left thigh significantly swollen compared to right-postoperative bleeding is likely reason for acute blood loss anemia.
Restart ASA if rpt Hb stable at 2 PM[address]
CAT scan of the abdomen and pelvis -small intramuscular hematoma/edema in the left iliopsoas muscle and piriformis muscle. Postsurgical changes. Right hip hardware ordered artifact in the pelvis. Moderate fecal material throughout the colon.
Hepatic cyst and hemangioma. Nonobstructing renal stone
Status post 2 units of packed red blood cells on 09/11/23 with appropriate rise in hemoglobin
Repeat hemoglobin stable
#Urinary retention- Treated Constipation
Oxybutynin stopped
Proscar changed to daily
Urology to evaluate
Leung placed
No UTI
#Constipation -resolved. Had BMS
# Angulated left intertrochanteric femoral fracture secondary to trauma and osteoporosis
Left hip intramedullary nail placement by Dr. Parra on 09/10/23
Pain control Celebrex and also Tylenol.
# TME likely secondary to Dementia and postoperative reasons and also narcotics. Off narcotics
# Low Normal B12 - Replace

# Lewy body dementia-on memantine
# Chronic orthostatic hypotension-midodrine
# Dyslipidemia-statin
# Prostatic atrophy-finasteride
Oxybutynin for urinary incontinence
# Anxiety-Lorazepam at nighttime
Continue since that is an OP med.
# Nephrolithiasis
# Ambulatory dysfunction
# DVT prophylaxis-foot pumps today. Restart aspirin if hemoglobin is stable at 2 PM
# Full code
Discussed with nursing
Anticipated Discharge: Within 24 hours
Subjective/Interval History
-
Date of Service: September 13, 2023
Objective Data
-
Labs:
Laboratory Results
09/13/23
05:43
Hgb 9.1 L
Hct 26.9 L
Vital Signs:
Vital Signs
Temp Pulse Resp BP Pulse Ox
97.8 F 79 16 128/57 97
09/13/23 07:42 09/13/23 07:42 09/13/23 07:42 09/13/23 07:42 09/13/23 07:42
I&O
09/12/23 09/13/23 09/14/23
06:59 06:59 06:59
Intake Total 120 / 120 720 / 720
Output Total 980 / 980 1400 / 1400
Balance -860 / -860 -680 / -680
--- NOTE | 2023-09-13 12:16 | W.DS.TRANS ---
Addendum entered and electronically signed by Carla Gupta MD 09/13/23 16:39:
[facility]- [id number]
Original Note:
DC Summary - [facility]
-
Discharge Instructions:
Discharge Diagnosis/Procedures Angulated left intertrochanteric femoral
fracture status post left hip intramedullary
nail placement 09/10/2023, acute blood loss
anemia postoperative, dementia, constipation,
chronic orthostatic hypotension, dyslipidemia,
prostatic hypertrophy, anxiety, ambulatory
dysfunction
Diet As tolerated
Activity As tolerated,With Walker
Bathing Restrictions OK to Shower
Blood Work CBC,BMP 3-4 days
Wound Care Maintain dressing for 7-10 days. [place] to be
taken out 14 days from surgery, at SNF or in
office.
Instructions:
Stand-Alone Forms:
Changes to Home Medications: Yes
Discharge Medications:
DC Medications w/original date entered in [employer]
acetaminophen 500 mg tablet 1,000 mg PO Q6HPRN PRN pain, headache, fever 05/05/22
atorvastatin 10 mg tablet 10 mg PO DAILY@1999 High cholesterol 05/05/22
midodrine 10 mg tablet 10 mg PO TID@0800,1300,1800 low blood presssure 05/05/22
famotidine 20 mg tablet 20 mg PO DAILY@1999 Gastrointestinal Issue 09/09/23
memantine 10 mg tablet 10 mg PO BID Neurological Condition 09/09/23
polyethylene glycol 400 0.25 % eye drops (Blink Tears) 1 drp ophthalmic (eye) TID Eye Condition 09/09/23
acetaminophen 500 mg tablet (Tylenol Extra Strength) 1,000 mg PO Q8H Pain #0 tabs 09/12/23
aspirin 325 mg tablet,delayed release 325 mg PO DAILY Blood clot prevention/tx #0 tabs 09/12/23
celecoxib 100 mg capsule 100 mg PO BID PRN pain #0 caps 09/12/23
docusate sodium 100 mg capsule 100 mg PO BID Constipation #0 caps 09/12/23
lorazepam 0.5 mg tablet 0.25 mg PO HS Mental Health/Anxiety #2 tabs 09/12/23
pantoprazole 40 mg tablet,delayed release 40 mg PO DAILY while on high dose ASA #0 tabs 09/12/23
polyethylene glycol 3350 17 gram oral powder packet (HealthyLax) 17 g PO DAILY Constipation #0 ea 09/12/23
sennosides 8.6 mg tablet (Senna Laxative) 8.6 mg PO HS Constipation #0 tabs 09/12/23
cyanocobalamin (vitamin B-12) 1,000 mcg tablet 1,000 mcg PO DAILY low B12 #0 tabs 09/13/23
finasteride 5 mg tablet 5 mg PO DAILY prostate #0 tabs 09/13/23
tamsulosin 0.4 mg capsule 0.4 mg PO DAILY Urinary issue #0 caps 09/13/23
Home Medication Changes
Flomax is new
Finasteride changed
Oxybutynin discontinued
MiraLAX, Senokot, Protonix, Celebrex, Colace are new
Aspirin changed to 325 mg temporarily
Pending Results: No
[2023-09-13] MEDS: VITAMIN B-12 1000 MCG PO (12:20)
[2023-09-13 15:34] VITALS: BP 108/65
--- NOTE | 2023-09-13 16:38 | W.DS.TRANS ---
DC Summary - Ear Nose Throat Physician
-
Discharge Instructions:
Discharge Diagnosis/Procedures Angulated left intertrochanteric femoral
fracture status post left hip intramedullary
nail placement 09/10/2023, acute blood loss
anemia postoperative, dementia, constipation,
chronic orthostatic hypotension, dyslipidemia,
prostatic hypertrophy, anxiety, ambulatory
dysfunction
Diet As tolerated
Activity As tolerated,With Walker
Bathing Restrictions OK to Shower
Blood Work CBC,BMP 3-4 days
Wound Care Maintain dressing for 7-10 days. [place] to be
taken out 14 days from surgery, at SNF or in
office.
Instructions:
Stand-Alone Forms:
Changes to Home Medications: Yes
Discharge Medications:
DC Medications w/original date entered in [employer]
acetaminophen 500 mg tablet 1,000 mg PO Q6HPRN PRN pain, headache, fever 05/05/22
atorvastatin 10 mg tablet 10 mg PO DAILY@1999 High cholesterol 05/05/22
midodrine 10 mg tablet 10 mg PO TID@0800,1300,1800 low blood presssure 05/05/22
famotidine 20 mg tablet 20 mg PO DAILY@1999 Gastrointestinal Issue 09/09/23
memantine 10 mg tablet 10 mg PO BID Neurological Condition 09/09/23
polyethylene glycol 400 0.25 % eye drops (Blink Tears) 1 drp ophthalmic (eye) TID Eye Condition 09/09/23
acetaminophen 500 mg tablet (Tylenol Extra Strength) 1,000 mg PO Q8H Pain #0 tabs 09/12/23
aspirin 325 mg tablet,delayed release 325 mg PO DAILY Blood clot prevention/tx #0 tabs 09/12/23
celecoxib 100 mg capsule 100 mg PO BID PRN pain #0 caps 09/12/23
docusate sodium 100 mg capsule 100 mg PO BID Constipation #0 caps 09/12/23
lorazepam 0.5 mg tablet 0.25 mg PO HS Mental Health/Anxiety #2 tabs 09/12/23
pantoprazole 40 mg tablet,delayed release 40 mg PO DAILY while on high dose ASA #0 tabs 09/12/23
polyethylene glycol 3350 17 gram oral powder packet (HealthyLax) 17 g PO DAILY Constipation #0 ea 09/12/23
sennosides 8.6 mg tablet (Senna Laxative) 8.6 mg PO HS Constipation #0 tabs 09/12/23
cyanocobalamin (vitamin B-12) 1,000 mcg tablet 1,000 mcg PO DAILY low B12 #0 tabs 09/13/23
finasteride 5 mg tablet 5 mg PO DAILY prostate #0 tabs 09/13/23
tamsulosin 0.4 mg capsule 0.4 mg PO DAILY Urinary issue #0 caps 09/13/23
Home Medication Changes
Proscar changed to daily
new
pantoprazole 40 mg tablet,delayed release 40 mg PO DAILY while on high dose ASA #0 tabs 09/12/23
polyethylene glycol 3350 17 gram oral powder packet (HealthyLax) 17 g PO DAILY Constipation #0 ea 09/12/23
sennosides 8.6 mg tablet (Senna Laxative) 8.6 mg PO HS Constipation #0 tabs 09/12/23
cyanocobalamin (vitamin B-12) 1,000 mcg tablet 1,000 mcg PO DAILY low B12 #0 tabs 09/13/23
tamsulosin 0.4 mg capsule 0.4 mg PO DAILY Urinary issue #0 caps 09/13/23
Pending Results: No
--- NOTE | 2023-09-13 16:52 | CM ---
Addendum entered by Daniel Rai 09/13/23 16:56:
NURSE TO NURSE REPORT # [phone]
FAX # [phone]
Original Note:
Patient has been medically cleared for discharge to [facility] for retirement and rehab services. Ambulance transport is scheduled for 8:30PM. POA/Daughter, Coco, notified as well as director of kids at [facility].
[2023-09-13] MEDS: SENOKOT PO (19:17)
[2023-09-13] MEDS: COLACE PO (19:17)
--- NOTE | 2023-09-13 19:35 | PTCARENOTE ---
Pt has been drowsy unable to give meds. pt continues to have loose stools. Waiting for ambulance.
[2023-09-13] MEDS: CELEBREX PO (20:05)
[2023-09-13] MEDS: LIPITOR PO (20:05)
[2023-09-13] MEDS: NAMENDA PO (20:05)
[2023-09-13] MEDS: PEPCID PO (20:06)
[2023-09-13 20:30] VITALS: BP 141/78
[2023-09-13] MEDS: ATIVAN PO (21:05)
== END 2023-09-13 21:20 | DRG 480 ==
LOC: 2 SOUTH 13:37
PROVIDERS: Registered Nurse; ADMITTING PHYSICIAN Internal Medicine; ATTENDING PHYSICIAN Hospitalist; CONSULT PHYSICIAN Orthopaedic Surgery Hand Surgery; CONSULT PHYSICIAN Specialist; EMERGENCY PHYSICIAN Emergency Medicine
PROC: 0QS706Z Reposition Left Upper Femur with Intramedullary Internal Fixation Device, Open Approach (ICD-10-PCS; 2023-09-10)
PROC: 30233N1 Transfusion of Nonautologous Red Blood Cells into Peripheral Vein, Percutaneous Approach (ICD-10-PCS; 2023-09-11)
DX: M80.052A Age-related osteoporosis with current pathological fracture, left femur, initial encounter for fracture (principal); G92.8 Other toxic encephalopathy; D62 Acute posthemorrhagic anemia; F02.84 Dementia in other diseases classified elsewhere, unspecified severity, with anxiety; M96.840 Postprocedural hematoma of a musculoskeletal structure following a musculoskeletal system procedure; W01.0XXA Fall on same level from slipping, tripping and stumbling without subsequent striking against object, initial encounter; Y93.9 Activity, unspecified; Y92.129 Unspecified place in nursing home as the place of occurrence of the external cause; G31.83 Neurocognitive disorder with Lewy bodies; I10 Essential (primary) hypertension; E78.00 Pure hypercholesterolemia, unspecified; T40.695A Adverse effect of other narcotics, initial encounter; I95.1 Orthostatic hypotension; R26.2 Difficulty in walking, not elsewhere classified; G20.A1 Parkinson's disease without dyskinesia, without mention of fluctuations; K59.00 Constipation, unspecified; N40.1 Benign prostatic hyperplasia with lower urinary tract symptoms; R32 Unspecified urinary incontinence; R33.8 Other retention of urine; Z87.891 Personal history of nicotine dependence; Z79.82 Long term (current) use of aspirin
CPT/HCPCS: 70450; 72125; 73502; 73552; 73700; 74176; 76000; 80048; 80053; 81003; 81015; 82607; 82728; 83540; 83550; 83735; 85014; 85018; 85025; 85027; 86850; 86900; 86901; 86920; 87070; 93005; 97163; 97167; 97530; 97535; 99285; C1713; C1769; P9016

== ENCOUNTER → 2023-09-15 10:25 | Outpatient (REF) | payer MEDICARE, BC, SELFPAY ==
[2023-09-15 10:35] LABS: % Basophils 0.3 % (0-2); % Immature Granulocytes 0.3 % (0-0.5); % Lymphocytes 18.9 % (20.5-51.1); % Neutrophils 68.5 % (42.2-75.2); Absolute Eosinophils 0.1 10^3/uL (0-0.7); Absolute Lymphocytes 1.4 10^3/uL (1.2-3.4); Absolute Monocytes 0.8 10^3/uL (0.1-0.6); Absolute Neutrophils 4.9 10^3/uL (1.4-6.5); Hematocrit 23.8 % (39.0-52.0); Hemoglobin 7.9 g/dL (13.0-18.0); Mean Corp Hgb Conc. 33.2 g/dL (33.0-37.0); Mean Corpuscular Hgb 29.7 pg (27.0-31.0); Mean Corpuscular Volume 89.5 fL (80.0-94.0); Mean Platelet Volume 10.4 fL (7.4-10.4); Nucleated Red Blood Cells % 0 % (-); Platelet Count 189 10^3/uL (130-400); Red Blood Cell Count 2.66 10^6/uL (4.70-6.10); Red Cell Dist. Width 13.4 % (11.5-14.5); White Blood Cell Count 7.2 10^3/uL (4.8-10.8)
[2023-09-15 10:58] LABS: ALT (SGPT) 16 U/L (0-50); AST (SGOT) 30 U/L (17-59); Albumin 3.3 g/dl (3.5-5.0); Alkaline Phosphatase 87 U/L (38-126); Blood Urea Nitrogen 32 mg/dl (9-20); Calcium 8.9 mg/dl (8.4-10.2); Carbon Dioxide 26 mmol/L (22-30); Chloride 104 mmol/L (98-107); Glucose 106 mg/dl (70-99); Potassium 4.3 mmol/L (3.5-5.1); Sodium 141 mmol/L (135-145); Total Bilirubin 1.9 mg/dl (0.2-1.3); Total Protein 5.8 g/dl (6.3-8.2); eGFR > 60.00
== END ==
LOC: OLABP 10:25
PROVIDERS: ATTENDING PHYSICIAN Family Medicine
DX: R33.9 Retention of urine, unspecified (principal); N31.9 Neuromuscular dysfunction of bladder, unspecified; E78.00 Pure hypercholesterolemia, unspecified; K59.00 Constipation, unspecified; N20.0 Calculus of kidney
CPT/HCPCS: 36415; 80053; 85025